=== PATIENT | male | born 1950 | race Caucasian/White ===

== ENCOUNTER 2016-12-24 19:01 | Emergency (ER) | payer MEDICARE, OTHER ==
[2016-12-24 19:07] VITALS: BP 151/93
--- NOTE | 2016-12-26 19:42 | UC ---
Morteza Bustamante Nikita, scribed for Zoey Mendoza, DO on 12/24/16 at 1932 . General HPI - HPI Summary HPI Summary: This patient is a 66 year old M presenting to [facility] with a chief complaint of facial neurological deficit since 1100 this morning. The CC is described as felt his mouth was off this afternoon on the R side, wasnt spitting straight , and numbness on R side of mouth. The patient rates the pain 0/10 in severity. Symptoms aggravated by nothing. Symptoms alleviated by nothing. Patient reports R eye irritation (last night, resolved this morning), R eye droop and dryness (causes vision change), no taste of food on R side of mouth, and no sensation on R side of tongue. Patient denies CASTILLO, confusion, CP, SOB, difficulty swallowing, abdominal pain, N/V, urinary symptoms, rash, one-sided weakness (other than mouth), speech changes, and numbness (other than mouth). - History of Current Complaint Chief Complaint: UCGeneralIllness Stated Complaint: MOUTH NUMBNESS,EYE DRAINING,FACE DROOPING Time Seen by Provider: 12/24/16 19:20 Hx Obtained From: Patient Onset/Duration: Sudden Onset, Lasting Days, Still Present - R sided mouth droop , R eye droop and L eye dryness, Resolved - R eye irritation Pain Intensity: 0 Aggravating: nothing Alleviating: nothing Associated Signs & Symptoms: Positive: Other - PPatient reports R eye irritation (last night, resolved this morning), R eye droop and dryness (causes vision change), no taste of food on R side of mouth, and no sensation on R side of tongue. Patient denies CASTILLO, confusion, CP, SOB, difficulty swallowing, abdominal pain, N/V, urinary symptoms, rash, one-sided weakness (other than mouth), speech changes, and numbness (other than mouth). - Allergy/Home Medications Allergies/Adverse Reactions: Allergies Allergy/AdvReac Type Severity Reaction Status Date / Time No Known Allergies Allergy Verified 12/24/16 19:07 Home Medications: Home Medications Omeprazole CAP* [Prilosec CAP* 20 MG] 12/24/16 [History] Sildenafil Citrate [Viagra] PRN 12/24/16 [History] Statin* 12/24/16 [History] PMH/Surg Hx/FS Hx/Imm Hx Endocrine History: Other Other Endocrine History: No DM Cardiovascular History: Other Other Cardiovascular History: No CAD, HTN - Surgical History Surgical History: Yes Surgery Procedure, Year, and Place: HERNIA REPAIR - Family History Known Family History: Negative: Cardiac Disease, Hypertension, Diabetes - Social History Alcohol Use: Occasionally Substance Use Type: None Smoking Status (MU): Never Smoked Tobacco Review of Systems Eyes: Other - R eye irritation (last night, resolved this morning), R eye dryness (causes vision change) ENT: Other - denies difficulty swallowing Respiratory: Negative Cardiovascular: Negative Gastrointestinal: Negative Genitourinary: Negative Neurological: Other - R eye droop; Denies CASTILLO, confusion, one-sided weakness ( other than mouth), speech changes, and numbness (other than mouth). All Other Systems Reviewed And Are Negative: Yes Physical Exam Triage Information Reviewed: Yes Appearance: Well-Appearing, No Pain Distress, Well-Nourished Vital Signs: Initial Vital Signs Temp 98.4 F 12/24/16 19:03 Pulse 87 12/24/16 19:03 Resp 16 12/24/16 19:03 BP 151/93 12/24/16 19:03 Pulse Ox 100 12/24/16 19:03 Vital Signs Reviewed: Yes Eyes: Positive: Conjunctiva Clear. Negative: Discharge ENT: Positive: Hearing grossly normal. Negative: Muffled/hoarse voice Neck exam: Normal Neck: Positive: Supple Respiratory: Positive: Lungs clear, Normal breath sounds, No respiratory distress, No accessory muscle use Cardiovascular: Positive: RRR, No Murmur Musculoskeletal Exam: Normal Neurological Exam: Other - Facial droop on R side of face that sparing of forehead, CN II-XII INTACT grossly intact except facial nerve and possibly the third division of trigeminal, strength and sensation reflexes in body is intact , A&Ox3, no cerebellar signs Psychological Exam: Normal Psychological: Positive: Age Appropriate Behavior Skin Exam: Normal, Other - Warm, Dry, Normal color Course/Dx - Course Course Of Treatment: This patient is a 66 year old M presenting to [facility] with a chief complaint of facial neurological deficit since 1100 this morning. The CC is described as felt his mouth was off this afternoon on the R side, wasnt spitting straight, and numbness on R side of mouth. The patient rates the pain 0/10 in severity. Symptoms aggravated by nothing. Symptoms alleviated by nothing. Patient reports R eye irritation (last night, resolved this morning), R eye droop and dryness (causes vision change), no taste of food on R side of mouth, and no sensation on R side of tongue. Patient denies CASTILLO, confusion, CP, SOB, difficulty swallowing, abdominal pain, N/V, urinary symptoms, rash, one- sided weakness (other than mouth), speech changes, and numbness (other than mouth). Medications reviewed. High blood pressure noted. Pt will be discharged and sent to [facility]. Pt is agreeable with this plan. - Differential Dx - Multi-Symptom Provider Diagnoses: r/o cva, Elevated blood pressure without diagnosis of hypertension. Discharge - Discharge Plan Condition: Guarded Disposition: TRANS HIGHER LVL OF CARE FAC Referrals: No Primary Care Phys,NOPCP [Primary Care Provider] - Additional Instructions: Your blood pressure was elevated at this visit. That does not mean you have hypertension, it is probably due to your current condition. Please follow up with your primary care provider. The documentation as recorded by the Morteza todd Nikita accurately reflects the service I personally performed and the decisions made by , Zoey Mendoza DO.
== END 2016-12-24 19:55 | disposition short-term general hospital (02) ==
LOC: UCEAST 19:01
DX: R03.0 Elevated blood-pressure reading, without diagnosis of hypertension (principal)
CPT/HCPCS: 99203; G0463

== ENCOUNTER 2016-12-24 20:11 | Emergency (ER) | payer MEDICARE, OTHER ==
[2016-12-24] MEDS ORDERED: predniSONE TAB* 20 MG PO ONE (21:13)
[2016-12-24] MEDS ORDERED: Eye Irrigation Solution 30 ML BOTTLE RIGHT EYE ONE (21:24)
[2016-12-24] MEDS ORDERED: Artificial Tear OPHTH.OINT* 3.5 GM RIGHT EYE ONE (21:24)
--- NOTE | 2016-12-24 22:02 | RAD ---
Indication: Right-sided facial droop. CT of the brain was performed without IV contrast. Ventricular structures are midline. No midline shift is noted. The extra-axial spaces are unremarkable. Mastoid air cells and paranasal sinuses are otherwise unremarkable. No prior exam is available for comparison. IMPRESSION: No intracranial mass or hemorrhage is noted.
[2016-12-24 22:10] VITALS: BP 138/82
[2016-12-24] MEDS ORDERED: Artificial Tears* 15 ML BTL ONE (22:14)
--- NOTE | 2016-12-24 22:16 | ED ---
Annamarie Bustamante Alfonso, scribed for Chrystal Reyes MD on 12/24/16 at 2113 . Neurological HPI - HPI Summary HPI Summary: This patient is a 66 year old M presenting to [facility] accompanied by partner and son with a chief complaint of right-sided facial drooping since last night. The patient rates the pain 0/10 in severity. Symptoms aggravated by nothing. Symptoms alleviated by nothing. Patient reports bilateral tinnitus, dry right eye, and a change in taste having noticed a difference in taste of water. Patient denies having herpes, cold sores, and acknowledged tick bites. - History of Current Complaint Chief Complaint: EDNeurologicalDeficit Stated Complaint: STROKE-LIKE SYMPTOMS-SENT FROM Time Seen by Provider: 12/24/16 20:13 Hx Obtained From: Patient Onset/Duration: Sudden Onset, Started days ago - last night, Still Present Timing: Sudden Onset Neurological Deficit Location: Facial - Right side Pain Intensity: 0 Pain Scale Used: 0-10 Numeric Aggravating: Nothing Associated Signs and Symptoms: Positive: Tinnitus - bilateral, Numbness - Since last night - Allergy/Home Medications Allergies/Adverse Reactions: Allergies Allergy/AdvReac Type Severity Reaction Status Date / Time No Known Allergies Allergy Verified 12/24/16 19:07 PMH/Surg Hx/FS Hx/Imm Hx Cardiovascular History: Reports: Hx Hypercholesterolemia Musculoskeletal History: Denies: Hx Rheumatoid Arthritis, Hx Osteoporosis, Hx Scoliosis Opthamlomology History: Denies: Hx Legally Blind EENT History: Denies: Hx Deafness Neurological History: Denies: Hx Headaches, Other Neuro Impairments/Disorders - Surgical History Surgery Procedure, Year, and Place: HERNIA REPAIR Infectious Disease History: No Infectious Disease History: Denies: Traveled Outside the [place] in Last 30 Days - Family History Known Family History: Positive: Other - Negative CVA - Social History Alcohol Use: Occasionally Substance Use Type: Reports: None Smoking Status (MU): Never Smoked Tobacco Review of Systems Negative: Fever Positive: Other - Dry right eye Positive: Other - Bilateral tinnitus Neurological: Other - right-sided facial drooping, change in taste All Other Systems Reviewed And Are Negative: Yes Physical Exam - Summary Physical Exam Summary: General: Well appearing, no pain distress Skin: Warm, Skin Color Reflects Adequate Perfusion, Dry Eyes: EOMI, ALICIA ENT: Pharynx normal, TMs normal Neck: Supple, nontender Respiratory: CTA, breath sounds present, no rhonchi, no wheezes, no rales Cardiovascular: RRR, no murmur, no rub, no gallop Abdomen: Soft, nontender, Non-distended, no guarding, no rebound Bowel: Present Musculoskeletal: BERTRAND, No edema Neuro: A&Ox3. Mild right-sided facial droop with incomplete sparing of the forehead. Forehead still rises but not as much as on the left hand side. See NIH scale. Psych: Affect/mood appropriate Triage Information Reviewed: Yes Vital Signs On Initial Exam: Initial Vitals Temp Pulse Resp BP Pulse Ox 99.1 F 82 18 135/86 98 12/24/16 20:23 12/24/16 20:23 12/24/16 20:23 12/24/16 20:23 12/24/16 20:23 Vital Signs Reviewed: Yes - Kevin Coma Scale Coma Scale Total: 14 Diagnostics - Vital Signs Vital Signs Temp Pulse Resp BP Pulse Ox 12/24/16 20:23 99.1 F 82 18 135/86 98 - Laboratory Lab Statement: Any lab studies that have been ordered have been reviewed, and results considered in the medical decision making process. - CT Brain CT Interpretation Completed By: Radiologist - No intracranial mass or hemorrhage is noted. ED physician has reviewed this radiology report and agrees. NIH Scale - NIH Scale Level of Consciousness: Alert/Keenly Responsive Ask Pt to Open/Close Eyes and Diver'S Tender/Release Non-Paretic Hand: Both Correctly Best Gaze (Only Horizontal Eye Movement): Normal Visual Field Testing: No Visual Loss Motor Function - Right Arm: No Drift-Holds 10 Seconds Motor Function - Left Arm: No Drift-Holds 10 Seconds Motor Function - Right Leg: No Drift-Holds 10 Seconds Motor Function - Left Leg: No Drift-Holds 10 Seconds Sensory (Use Pinprick to Test Arms/Legs/Trunk/Face): Normal Best Language (Describe Picture, Name Items): No Aphasia Dysarthria (Read Several Words): Normal Extinction and Inattention: No Abnormality Course/Dx - Course Course Of Treatment: 66 yo male with mild right sided facial droop with equivalent inability to raise right forehead (it still does raise but not as much as the left). ct brain neg. pt being covered for lyme with doxy and hsv with valcyclovir and prednisone. 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 Discharge - Discharge Plan Condition: Stable Disposition: HOME Prescriptions: Artificial Tears* 15 ML BTL [Polyvinyl Alcohol 1.4% OPTH*] 1 drop RIGHT EYE Q2H PRN #1 btl PRN Reason: Dry Eye DOXYcycline CAP(*) [DOXYcycline 100MG CAP(*)] 100 mg PO BID #26 cap ValACYclovir (*) [Valtrex 500 mg (*)] 500 mg PO BID #10 tab White Petrolatum-Mineral Oil [Lubricant Eye Nighttime] 1 oin OP BEDTIME #1 oin predniSONE TAB* [Deltasone TAB*] 60 mg PO DAILY #4 tab Patient Education Materials: Do Palsy (ED) Referrals: Sotero Boyer MD [Primary Care Provider] - 3 Days Additional Instructions: RETURN TO THE EMERGENCY DEPARTMENT FOR CHANGING OR WORSENING SYMPTOMS. The documentation as recorded by the Annamarie todd Alfonso accurately reflects the service I personally performed and the decisions made by Amy tello Justine, MD.
[2016-12-25] MEDS ORDERED: ValACYclovir (*) 1 GM TAB PO ONE (21:22)
== END 2016-12-24 22:40 | disposition home or self-care (01) ==
LOC: ED 20:11
DX: G51.0 Bell's palsy (principal); H93.13 Tinnitus, bilateral
CPT/HCPCS: 70450; 86618; 99282; A9270-GY; J7512